=== PATIENT | male | born 1995 | race Caucasian/White ===

== ENCOUNTER 2017-08-20 16:05 | Emergency (ER) | payer OTHER ==
[~2017-08-20] VITALS: Ht 180.3 cm; Wt 72.7 kg
[2017-08-20 16:06] VITALS: BP 121/86; TEMP 97.1
[2017-08-20 16:19] LABS: COLLECTION METHOD CLEAN CATCH
[2017-08-20 16:36] LABS: URINE APPEARANCE Clear; URINE COLOR Yellow
[2017-08-20] MEDS ORDERED: DEPAKOTE500 MG PO (16:36)
[2017-08-20] MEDS ORDERED: LAMICTAL 25MG T25 MG PO (16:36)
[2017-08-20 16:37] LABS: PH 8 (5-8); URINE BILIRUBIN Negative (NEGATIVE); URINE BLOOD Negative (NEGATIVE); URINE GLUCOSE Negative (NEGATIVE); URINE KETONE Negative (NEGATIVE); URINE LEUKOCYTE ESTERASE Negative (NEGATIVE); URINE NITRATE Negative (NEGATIVE); URINE PROTEIN(semi-quant) Negative (NEGATIVE); URINE UROBILINOGEN Negative (NEGATIVE)
[2017-08-20] MEDS ORDERED: ATIVAN 1MG T1 MG/TAB PO (16:37)
[2017-08-20] MEDS ORDERED: PAXIL 20MG20 MG PO (16:37)
[2017-08-20 16:40] LABS: AMORPHOUS CRYSTAL Present /uL; SQUAMOUS EPITHELIAL None Seen /hpf; URINE BACTERIA None Seen /hpf; URINE RBC 0-2 /hpf
[2017-08-20 17:14] VITALS: PULSE 88
== END 2017-08-20 17:17 | disposition home or self-care (01) ==
LOC: COL.ER 16:05
PROVIDERS: Nurse Practitioner
DX: S09.90XA Unspecified injury of head, initial encounter (principal); S01.01XA Laceration without foreign body of scalp, initial encounter; S39.012A Strain of muscle, fascia and tendon of lower back, initial encounter; F41.9 Anxiety disorder, unspecified; F32.9 Major depressive disorder, single episode, unspecified; Z23 Encounter for immunization; V48.5XXA Car driver injured in noncollision transport accident in traffic accident, initial encounter